=== PATIENT | female | born 1975 | race African-American/Black ===

== ENCOUNTER 2016-05-15 22:58 | Emergency (ER) | payer OTHER ==
[~2016-05-15 22:58] MED LIST: ABIL1TAB7 PO; COLA100C PO; EFFE150C PO; EFFEXOR PO; FLEXARIL PO; NAPROXYN PO; NEURONTIN PO; OXYC-299 PO; PERCOCET PO; TRAMADOL PO
[2016-05-15] MEDS ORDERED: VENLAFAXINE **XR** 75MG CAPSULE As Ordered ONE (23:57)
[2016-05-16 00:24] LABS: CONTROL LINE UCG INT CTR LINE PRESENT
[2016-05-16 00:35] LABS: MEAN CORPUSCULAR HEMOGLOBIN 36.1 pg (27.0-33.0); MEAN CORPUSCULAR HGB CONC 33.4 g/dl (32.0-36.5); MEAN CORPUSCULAR VOLUME 99.9 fl (80.0-96.0); RED CELL DISTRIBUTION WIDTH 11.9 % (11.5-14.5); WHITE BLOOD COUNT 9.7 K/mm3 (4.0-10.0)
[2016-05-16 00:41] LABS: AMPHETAMINES LEVEL URINE NEGATIVE (NEGATIVE); BENZODIAZEPINES URINE NEGATIVE (NEGATIVE); COCAINE METABOLITE URINE NEGATIVE (NEGATIVE); METHADONE URINE NEGATIVE (NEGATIVE)
[2016-05-16 00:42] LABS: CONTROL LINE INT CTR LINE PRESENT; OPIATES URINE POSITIVE (NEGATIVE); TRICYCLIC ANTIDEPRESS URINE NEGATIVE (NEGATIVE)
[2016-05-16 01:03] LABS: ALKALINE PHOSPHATASE 83 U/L (45-117); ANION GAP 12 MEQ/L (8-16); BILIRUBIN,DIRECT < 0.1 MG/DL (0.0-0.2); BILIRUBIN,TOTAL 0.4 MG/DL (0.2-1.0); CALCIUM LEVEL 8.1 MG/DL (8.5-10.1); CARBON DIOXIDE LEVEL 21 MEQ/L (21-32); CHLORIDE LEVEL 105 MEQ/L (98-107); CREATININE FOR GFR 1.18 MG/DL (0.55-1.02); GLOMERULAR FILTRATION RATE > 60.0 (>60); GLUCOSE, FASTING 121 MG/DL (70-105); POTASSIUM SERUM 4.6 MEQ/L (3.5-5.1); SODIUM LEVEL 138 MEQ/L (136-145)
[2016-05-16 01:32] LABS: ALBUMIN/GLOBULIN RATIO 0.95 (1.00-1.93); ALT/SGPT 29 U/L (12-78); AST/SGOT 37 U/L (15-37); BLOOD UREA NITROGEN 19 MG/DL (7-18); TOTAL PROTEIN 8.2 GM/DL (6.4-8.2)
--- NOTE | 2016-05-16 02:58 | EDDOCDS ---
Nurse's Notes [facility] Name: Adriane Contreras Age: 40 yrs Sex: Female : 1975 Arrival Date: 05/15/2016 Time: 22:58 Bed I7 / 29 Private MD: NO PRIMARY PHYSICIAN, . Diagnosis: Major depressive disorder, recurrent Presentation: 05/15 23:09 Presenting complaint: Patient states: Has been off her "Mental Health Meds for two lf1 days". Pt reports she normally takes 450 mg Effexor daily, states since she has been off she has had increased feelings of anxiety, depression, anger and racing thoughts. Pt denies SI and HI. Mental Health Triage Level: Level 1- Pt displays no suicidal or homicidal ideations and does not appear to be a danger to self or others. Adult Sepsis Screening: The patient does not have new or worsening altered mentation. Patient's respiratory rate is less than 22. Systolic blood pressure is greater than 100. Patient has a qSOFA score of 0- Negative Sepsis Screen. Suicide/Homicide risk assessment- the patient denies having any suicidal and/or homicidal ideations and does not present with any other emotional, behavioral or mental health complaints. 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 Transition of care: patient was not received from another setting of care. 23:09 Acuity: NAV Level 4 lf1 23:09 Method Of Arrival: Walkin/Carried/Asstd lf1 23:13 Presenting complaint: Patient states: States her PCP prescribed the Effexor but she was lf1 suppose to followup with a provider for regular psychiatric care and hasn't been able to get in, is currently waiting to hear from someone at [facility]. 23:16 Red Flag criteria, Pt taken to Minor treatment to complete triage, denies SI/HI. lf1 Triage Assessment: 23:13 General: Appears unkempt, Behavior is. Pain: Location: back Pain currently is 6 out of lf1 10 on a pain scale. Pain began chronic. HIV screening NA for this visit Offered previously. Neurological: Level of Consciousness is awake, alert, Oriented to person, place, time. Respiratory: Respiratory effort is even, unlabored. GI: Denies nausea, vomiting. : Denies burning with urination, inability to void. Derm: Skin is normal. Injury Description: No known injury. 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 Effexor XR 450 mg Oral once daily (Last dose: 05/13/2016) - PMHx: Chronic Back pain; Depression; - PSHx: back surgery; Lumbar Surgery; - Social history: Smoking status: Smoking status: Patient uses tobacco products, current every day smoker. No barriers to communication noted, The patient speaks fluent [place], Speaks appropriately for age, Preferred Language: Ukrainian. - Family history: Not pertinent. - : The pt / caregiver states he / she is not on anticoagulants. Home medication list is obtained from the patient. - Exposure Risk Screening:: None identified. Screenin/04 02:52 Screening information is obtained from the patient. Fall risk: No risks identified. ead Assistance ADL's: requires no assistance with activities of daily living. Abuse/DV Screen: The patient / caregiver reports he/she is: not in a situation that causes fear, pain or injury. Nutritional screening: No deficits noted. Advance Directives: Currently, there is no health care proxy. There is no Power of Precision Agriculture Technician. home support is adequate. Assessment: 00:01 General: Appears in no apparent distress, Behavior is anxious. Neurological: Level of dsf Consciousness is awake, alert. Cardiovascular: Capillary refill < 3 seconds. Respiratory: Airway is patent Respiratory effort is even, unlabored, Respiratory pattern is regular, symmetrical. Derm: Skin is pink, warm & dry. 01:04 General: Appears in no apparent distress, to be sleeping. Respiratory: Airway is patent ead Respiratory effort is even, unlabored. Derm: Skin is pink, warm & dry. 02:00 General: Appears in no apparent distress, to be sleeping. awaiting PSA to evaluate pt. ead . Respiratory: Airway is patent Respiratory effort is even, unlabored. 02:53 General: Appears in no apparent distress, comfortable, Behavior is cooperative. ead Neurological: Level of Consciousness is awake, alert, Oriented to person, place, time. Respiratory: Airway is patent Respiratory effort is even, unlabored. Derm: No deficits noted. Social Work Consult: 02:44 Social Work Note: Met with Pt at bedside per request SHASHI Marquez. Pt was A&Ox3, calm and rb cooperative, denied SI/HI, denied AH/VH, and pleasant to talk with. Pt stated was living with her GF. They brokeup Saturday and was staying with a friend. Pt reported has no place to go, cannot stay with Friend. Pt reported has a Brother living in town but does not want to impose on him and his family. Pt stated "waiting on TLS to kick in". Encouraged Pt to contact her Brother for a temporary place to stay. Referred Pt to [facility] in the morning. Additional referrals given. No further interventions needed at this time. Vital Signs: 05/15 22:59 BP 145 / 95; Pulse 137; Resp 18 S; Temp 97.3(O); Pulse Ox 98% on R/A; Weight 81.65 kg gr2 (R); Height 5 ft. 7 in. (170.18 cm) (R); Pain 4/10; 23:13 Pulse 124; Resp 16; Pain 6/10; lf1 05/16 02:53 BP 162 / 80 (man/); Pulse 102; Resp 16; Temp 98.1; Pulse Ox 97% on R/A; ead 05/15 22:59 Body Mass Index 28.19 (81.65 kg, 170.18 cm) gr2 Vitals: 01 22:59 Log In Time: May 15, 2016 at 22:59. gr2 23:01 RN notified that patient meets Red Flag criteria. gr2 ED Course: 22:59 Patient visited by Abby Lopez. gr2 22:59 NO PRIMARY PHYSICIAN, . is Private Physician. gr2 22:59 Patient moved to Waiting gr2 23:01 Patient visited by Abby Lopez. gr2 23:01 Patient moved to Pre RCE gr2 23:09 Patient moved to Triage 1 lf1 23:12 Triage Initiated lf1 23:23 Jorge Marquez PA is PHCP. mo1 23:23 Jeet Johnson MD is Attending Physician. mo1 23:42 Patient visited by Jorge Marquez PA. mo1 23:47 Patient moved to I lf1 05/16 00:01 Patient visited by Norma Hilton RN. dsf 00:08 Acetaminophen Level Sent. dsf 00:08 Basic Metabolic Profile Sent. dsf 00:08 Complete Blood Count Sent. dsf 00:08 Drug Eval Toxicology ED Only Sent. dsf 00:08 Ethyl Alcohol (ethanol) Sent. dsf 00:08 Liver Profile Sent. dsf 00:08 Salicylate Level Sent. dsf 00:08 Thyroid Stimulating Hormone Sent. dsf 00:08 Urine Test-In Lab Sent. dsf 01:02 Patient visited by Allie YeeRN. ead 02:31 Patient visited by Allie Yee RN. ead 02:43 [facility] is Referral Physician. mo1 02:43 [facility] is Referral Physician. mo1 02:43 PSA Outpatient Referrals was scanned into [employer] and attached to record. rb 02:57 The patient / caregiver is instructed regarding the plan of care and ED course. ead 02:57 No IV's were initiated during this patient's visit. No procedures done that require ead assistance. Administered Medications: 05/15 23:58 Drug: Venlafaxine 450 mg [venlafaxine ER 75 mg capsule,extended release 24 hr (6 caps)] dsf Route: PO; Order Results: Lab Order: Acetaminophen Level; SPEC'M 05/16/16 00:07 Test: ACETAMINOPHEN LEVEL; Value: < 2.0; Range: 10.0-30.0; Abnormal: Below low normal; Units: UG/ML; Status: F Lab Order: Basic Metabolic Profile; SPEC'M 05/16/16 00:07 Test: GLUCOSE, FASTING; Value: 121; Range: 70-105; Abnormal: Above high normal; Units: MG/DL; Status: F Test: BLOOD UREA NITROGEN; Value: 19; Range: 7-18; Abnormal: Above high normal; Units: MG/DL; Status: F Test: CREATININE FOR GFR; Value: 1.18; Range: 0.55-1.02; Abnormal: Above high normal; Units: MG/DL; Status: F Test: GLOMERULAR FILTRATION RATE; Value: > 60.0; Range: >60; Status: F Test: SODIUM LEVEL; Value: 138; Range: 136-145; Units: MEQ/L; Status: F Test: POTASSIUM SERUM; Value: 4.6; Range: 3.5-5.1; Units: MEQ/L; Status: F Test: CHLORIDE LEVEL; Value: 105; Range: 98-107; Units: MEQ/L; Status: F Test: CARBON DIOXIDE LEVEL; Value: 21; Range: 21-32; Units: MEQ/L; Status: F Test: ANION GAP; Value: 12; Range: 8-16; Units: MEQ/L; Status: F Test: CALCIUM LEVEL; Value: 8.1; Range: 8.5-10.1; Abnormal: Below low normal; Units: MG/DL; Status: F Test Note: ; Units are mL/min/1.73 m2 Chronic Kidney Disease Staging per NKF: Stage I & II GFR >=60 Normal to Mildly Decreased Stage III GFR 30-59 Moderately Decreased Stage IV GFR 15-29 Severely Decreased Stage V GFR <15 Very Little GFR Left ESRD GFR <15 on BANK OFFICER Lab Order: Complete Blood Count; SPEC'M 05/16/16 00:07 Test: WHITE BLOOD COUNT; Value: 9.7; Range: 4.0-10.0; Units: K/mm3; Status: F Test: RED BLOOD COUNT; Value: 3.95; Range: 4.00-5.40; Abnormal: Below low normal; Units: M/mm3; Status: F Test: HEMOGLOBIN; Value: 13.2; Range: 12.0-16.0; Units: g/dl; Status: F Test: HEMATOCRIT; Value: 39.5; Range: 36.0-47.0; Units: %; Status: F Test: MEAN CORPUSCULAR VOLUME; Value: 99.9; Range: 80.0-96.0; Abnormal: Above high normal; Units: fl; Status: F Test: MEAN CORPUSCULAR HEMOGLOBIN; Value: 36.1; Range: 27.0-33.0; Abnormal: Above high normal; Units: pg; Status: F Test: MEAN CORPUSCULAR HGB CONC; Value: 33.4; Range: 32.0-36.5; Units: g/dl; Status: F Test: RED CELL DISTRIBUTION WIDTH; Value: 11.9; Range: 11.5-14.5; Units: %; Status: F Test: PLATELET COUNT, AUTOMATED; Value: 303; Range: 150-450; Units: k/mm3; Status: F Test Note: ; Testing was performed on a lipemic specimen. Suggest recollection of a FASTING specimen for more accurate test results. Lab Order: Drug Eval Toxicology ED Only; SPEC'M 05/16/16 00:07 Test: AMPHETAMINES LEVEL URINE; Value: NEGATIVE; Range: NEGATIVE; Status: F Test: BARBITURATES URINE; Value: NEGATIVE; Range: NEGATIVE; Status: F Test: BENZODIAZEPINES URINE; Value: NEGATIVE; Range: NEGATIVE; Status: F Test: CANNABINOIDS URINE; Value: NEGATIVE; Range: NEGATIVE; Status: F Test: COCAINE METABOLITE URINE; Value: NEGATIVE; Range: NEGATIVE; Status: F Test: METHADONE URINE; Value: NEGATIVE; Range: NEGATIVE; Status: F Test: OPIATES URINE; Value: POSITIVE; Range: NEGATIVE; Abnormal: Above high normal; Status: F Test: TRICYCLIC ANTIDEPRESS URINE; Value: NEGATIVE; Range: NEGATIVE; Status: F Test Note: ; ALL PRESUMPTIVE POSITIVE FINDINGS ARE UNCONFIRMED NORMAL VALUES THRESHOLD IN NG/ML AMPHETAMINES 1000 METHAMPHETAMINES 1000 BARBITURATES 300 BENZODIAZEPINES 300 CANNABINOIDS (THC) 50 COCAINE METABOLITE 300 METHADONE 300 OPIATES 300 PHENCYCLIDINE 25 TRICYCLIC ANTIDEPRESSANTS 1000 RESULTS ARE FOR MEDICAL PURPOSES ONLY. ALL URINE SPECIMENS WILL BE SAVED FOR 3 DAYS. IF CONFIRMATION OF A PRESUMPTIVE POSTIVE SCREEN RESULT IS DESIRED, CALL CHEMISTRY ([phone]) AND REQUEST URINE TO BE SENT TO REFERENCE LAB. FOR A LIST OF CLOSELY RELATED COMPOUNDS PLEASE CALL THE LAB. Lab Order: Ethyl Alcohol (ethanol); SPEC'M 05/16/16 00:07 Test: ETHYL ALCOHOL (ETHANOL); Value: 0.005; Range: 0.000-0.010; Units: %; Status: F Lab Order: Liver Profile; SPEC'M 05/16/16 00:07 Test: AST/SGOT; Value: 37; Range: 15-37; Units: U/L; Status: F Test: ALT/SGPT; Value: 29; Range: 12-78; Units: U/L; Status: F Test: ALKALINE PHOSPHATASE; Value: 83; Range: 45-117; Units: U/L; Status: F Test: BILIRUBIN,TOTAL; Value: 0.4; Range: 0.2-1.0; Units: MG/DL; Status: F Test: BILIRUBIN,DIRECT; Value: < 0.1; Range: 0.0-0.2; Units: MG/DL; Status: F Test: TOTAL PROTEIN; Value: 8.2; Range: 6.4-8.2; Units: GM/DL; Status: F Test: ALBUMIN; Value: 4.0; Range: 3.2-5.2; Units: GM/DL; Status: F Test: ALBUMIN/GLOBULIN RATIO; Value: 0.95; Range: 1.00-1.93; Abnormal: Below low normal; Status: F Lab Order: Salicylate Level; SPEC'M 05/16/16 00:07 Test: SALICYLATE LEVEL; Value: 1.7; Range: 5.0-30.0; Abnormal: Below low normal; Units: MG/DL; Status: F Lab Order: Thyroid Stimulating Hormone; SPEC'M 05/16/16 00:07 Test: THYROID STIMULATING HORMONE; Value: 0.483; Range: 0.358-3.740; Units: uIU/ML; Status: F Lab Order: Urine Test-In Lab; SPEC'M 05/16/16 00:07 Test: URINE PREG TEST; Value: NEGATIVE; Range: NEGATIVE; Status: F Outcome: 05/16 02:44 Discharge ordered by Provider. mo1 02:55 Discharge Assessment: Patient awake and alert. obeys commands, Oriented to person, ead place and time. patient administered narcotics - no. The following High Risk Discharge criteria are identified: None. Discharged to home ambulatory. Condition: improved. Discharge instructions given to patient, Instructed on discharge instructions, follow up and referral plans. medication usage, Demonstrated understanding of instructions, medications, Pt was receptive of discharge instructions/ teaching. Prescriptions given X 1. No special radiology studies were completed. Property sent home with patient. 02:57 Patient left the ED. ead Signatures: Sussy Ellis PSA PSA Gemini CoreaRN RN lf1 Norma Hilton,RN RN dsf Abby Lopez gr2 Jorge Marquez PA PA mo1 Allie Yee RN RN ead MTDD
--- NOTE | 2016-05-16 02:58 | EDDOCDS ---
Physician Documentation [facility] Name: Adriane Contreras Age: 40 yrs Sex: Female : 1975 Arrival Date: 05/15/2016 Time: 22:58 Bed I7 / 29 Private MD: NO PRIMARY PHYSICIAN, . Disposition: 05/16/16 02:44 Discharged to Home/Self Care. Impression: Major depressive disorder, recurrent. - Condition is Stable. - Discharge Instructions: Depression, Adult. - Prescriptions for Effexor XR 150 mg Oral capsule,extended release 24hr - take 3 capsule by ORAL route once daily; 42 capsule. - Medication Reconciliation, Local Pharmacy Hours form. - Follow up: [facility]; When: Call to arrange an appointment; Reason: Recheck today's complaints, Continuance of care. Follow up: [facility]; When: Call to arrange an appointment; Reason: Recheck today's complaints, Continuance of care. - Problem is an acute exacerbation. - Symptoms are unchanged. Historical: - Allergies: PENICILLINS (Rash); - Home Meds: 1. Effexor XR 450 mg Oral once daily (Last dose: 05/13/2016) - PMHx: Chronic Back pain; Depression; - PSHx: back surgery; Lumbar Surgery; - Social history: Smoking status: Smoking status: Patient uses tobacco products, current every day smoker. No barriers to communication noted, The patient speaks fluent Bangladeshi, Speaks appropriately for age, Preferred Language: Bangladeshi. - Family history: Not pertinent. - : The pt / caregiver states he / she is not on anticoagulants. Home medication list is obtained from the patient. - Exposure Risk Screening:: None identified. DOUPER: 05/15 23:13 0, Living 0, LMP 04/29/2016 lf1 Vital Signs: 22:59 BP 145 / 95; Pulse 137; Resp 18 S; Temp 97.3(O); Pulse Ox 98% on R/A; Weight 81.65 kg / gr2 180.01 lbs (R); Height 5 ft. 7 in. (170.18 cm) (R); Pain 4/10; 23:13 Pulse 124; Resp 16; Pain 6/10; lf1 05/16 02:53 BP 162 / 80 (man/); Pulse 102; Resp 16; Temp 98.1; Pulse Ox 97% on R/A; ead 05/15 22:59 Body Mass Index 28.19 (81.65 kg, 170.18 cm) gr2 MDM: 05/15 23:43 Venlafaxine Extended Release 24 hour Capsule 450 mg PO once ordered. mo1 23:51 Consult PFS/PSA/[employer] Teacher: Psychiatric Concerns ordered. mo1 23:51 Confirm accurate psychiatric medication list and times of last dosage ordered. mo1 23:51 Detain Pt Until Medically/PFS Cleared ordered. mo1 23:52 Acetaminophen Level Ordered. EDMS 23:52 Basic Metabolic Profile Ordered. EDMS 23:52 Complete Blood Count Ordered. EDMS 23:52 Drug Eval Toxicology ED Only Ordered. EDMS 23:52 Ethyl Alcohol (ethanol) Ordered. EDMS 23:52 Liver Profile Ordered. EDMS 23:52 Salicylate Level Ordered. EDMS 23:52 Thyroid Stimulating Hormone Ordered. EDMS 23:52 Urine Test-In Lab Ordered. EDMS 04 00:43 Complete Blood Count Reviewed. mo1 00:43 Urine Test-In Lab Reviewed. mo1 01:17 Drug Eval Toxicology ED Only Reviewed. mo1 01:17 Urine Test-In Lab Reviewed. mo1 01:47 Acetaminophen Level Reviewed. mo1 01:47 Basic Metabolic Profile Reviewed. mo1 01:47 Liver Profile Reviewed. mo1 01:48 Salicylate Level Reviewed. mo1 01:48 Ethyl Alcohol (ethanol) Reviewed. mo1 01:48 Thyroid Stimulating Hormone Reviewed. mo1 01:49 Consult PFS/PSA/Socail Worker: Cleared medically for eval ordered. mo1 02:43 PSA Outpatient Referrals was scanned into [employer] and attached to record. rb Administered Medications: 05/15 23:58 Drug: Venlafaxine 450 mg [venlafaxine ER 75 mg capsule,extended release 24 hr (6 caps)] dsf Route: PO; Signatures: Dispatcher [employer] EDMS Sussy Ellis, PSA PSA rb Gemini Hdez,RN RN lf1 Jorge Marquez PA PA mo1 Allie Yee RN RN ead Fuller, Desiree RN dsf MTDD
--- NOTE | 2016-05-18 03:58 | EDDOCDS ---
Physician Documentation [facility] Name: Adriane Contreras Age: 40 yrs Sex: Female : 1975 Arrival Date: 05/15/2016 Time: 22:58 Bed I7 / 29 Private MD: NO PRIMARY PHYSICIAN, . Disposition: 05/16/16 02:44 Discharged to Home/Self Care. Impression: Major depressive disorder, recurrent. - Condition is Stable. - Discharge Instructions: Depression, Adult. - Prescriptions for Effexor XR 150 mg Oral capsule,extended release 24hr - take 3 capsule by ORAL route once daily; 42 capsule. - Medication Reconciliation, Local Pharmacy Hours form. - Follow up: [facility]; When: Call to arrange an appointment; Reason: Recheck today's complaints, Continuance of care. Follow up: [facility]; When: Call to arrange an appointment; Reason: Recheck today's complaints, Continuance of care. - Problem is an acute exacerbation. - Symptoms are unchanged. Historical: - Allergies: PENICILLINS (Rash); - Home Meds: 1. Effexor XR 450 mg Oral once daily (Last dose: 05/13/2016) - PMHx: Chronic Back pain; Depression; - PSHx: back surgery; Lumbar Surgery; - Social history: Smoking status: Smoking status: Patient uses tobacco products, current every day smoker. No barriers to communication noted, The patient speaks fluent Citizen [place], Speaks appropriately for age, Preferred Language: Citizen [place]. - Family history: Not pertinent. - : The pt / caregiver states he / she is not on anticoagulants. Home medication list is obtained from the patient. - Exposure Risk Screening:: None identified. 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 7 in. (170.18 cm) (R); Pain 4/10; 23:13 Pulse 124; Resp 16; Pain 6/10; lf1 05/16 02:53 BP 162 / 80 (man/); Pulse 102; Resp 16; Temp 98.1; Pulse Ox 97% on R/A; ead 05/15 22:59 Body Mass Index 28.19 (81.65 kg, 170.18 cm) gr2 MDM: 05/15 23:43 Venlafaxine Extended Release 24 hour Capsule 450 mg PO once ordered. mo1 23:51 Consult PFS/PSA/News Analyst: Psychiatric Concerns ordered. mo1 23:51 Confirm accurate psychiatric medication list and times of last dosage ordered. mo1 23:51 Detain Pt Until Medically/PFS Cleared ordered. mo1 23:52 Acetaminophen Level Ordered. EDMS 23:52 Basic Metabolic Profile Ordered. EDMS 23:52 Complete Blood Count Ordered. EDMS 23:52 Drug Eval Toxicology ED Only Ordered. EDMS 23:52 Ethyl Alcohol (ethanol) Ordered. EDMS 23:52 Liver Profile Ordered. EDMS 23:52 Salicylate Level Ordered. EDMS 23:52 Thyroid Stimulating Hormone Ordered. EDMS 23:52 Urine Test-In Lab Ordered. EDMS 04 00:43 Complete Blood Count Reviewed. mo1 00:43 Urine Test-In Lab Reviewed. mo1 01:17 Drug Eval Toxicology ED Only Reviewed. mo1 01:17 Urine Test-In Lab Reviewed. mo1 01:47 Acetaminophen Level Reviewed. mo1 01:47 Basic Metabolic Profile Reviewed. mo1 01:47 Liver Profile Reviewed. mo1 01:48 Salicylate Level Reviewed. mo1 01:48 Ethyl Alcohol (ethanol) Reviewed. mo1 01:48 Thyroid Stimulating Hormone Reviewed. mo1 01:49 Consult PFS/PSA/Socail Worker: Cleared medically for eval ordered. mo1 02:43 PSA Outpatient Referrals was scanned into [employer] and attached to record. [place] 12:44 T-Sheet-- Draft Copy was scanned into [employer] and attached to record. gb Administered Medications: 05/15 23:58 Drug: Venlafaxine 450 mg [venlafaxine ER 75 mg capsule,extended release 24 hr (6 caps)] dsf Route: PO; Signatures: Dispatcher [employer] EDMS Sussy Ellis, PSA PSA rb Jazmin Hudson, Reg Reg gb Gemini HdezRN RN lf1 Jorge Marquez PA PA mo1 Allie YeeRN RN Norma Dailey RN dsf The chart was reviewed and I authenticate all verbal orders and agree with the evaluation and treatment provided.Attachments: 12:44 T-Sheet-- Draft Copy gb Chart Complete MTDD
--- NOTE | 2016-05-18 03:58 | EDDOCDS ---
Nurse's Notes [facility] Name: Adriane Contreras Age: 40 yrs Sex: Female : 1975 Arrival Date: 05/15/2016 Time: 22:58 Bed I7 / 29 Private MD: NO PRIMARY PHYSICIAN, . Diagnosis: Major depressive disorder, recurrent Presentation: 05/15 23:09 Presenting complaint: Patient states: Has been off her "Mental Health Meds for two lf1 days". Pt reports she normally takes 450 mg Effexor daily, states since she has been off she has had increased feelings of anxiety, depression, anger and racing thoughts. Pt denies SI and HI. Mental Health Triage Level: Level 1- Pt displays no suicidal or homicidal ideations and does not appear to be a danger to self or others. Adult Sepsis Screening: The patient does not have new or worsening altered mentation. Patient's respiratory rate is less than 22. Systolic blood pressure is greater than 100. Patient has a qSOFA score of 0- Negative Sepsis Screen. Suicide/Homicide risk assessment- the patient denies having any suicidal and/or homicidal ideations and does not present with any other emotional, behavioral or mental health complaints. Status: Patient is not a claims service adjustor or dependent. Transition of care: patient was not received from another setting of care. 23:09 Acuity: NAV Level 4 lf1 23:09 Method Of Arrival: Walkin/Carried/Asstd lf1 23:13 Presenting complaint: Patient states: States her PCP prescribed the Effexor but she was lf1 suppose to followup with a provider for regular psychiatric care and hasn't been able to get in, is currently waiting to hear from someone at [facility]. 23:16 Red Flag criteria, Pt taken to Minor treatment to complete triage, denies SI/HI. lf1 Triage Assessment: 23:13 General: Appears unkempt, Behavior is. Pain: Location: back Pain currently is 6 out of lf1 10 on a pain scale. Pain began chronic. HIV screening NA for this visit Offered previously. Neurological: Level of Consciousness is awake, alert, Oriented to person, place, time. Respiratory: Respiratory effort is even, unlabored. GI: Denies nausea, vomiting. : Denies burning with urination, inability to void. Derm: Skin is normal. Injury Description: No known injury. 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 Effexor XR 450 mg Oral once daily (Last dose: 05/13/2016) - PMHx: Chronic Back pain; Depression; - PSHx: back surgery; Lumbar Surgery; - Social history: Smoking status: Smoking status: Patient uses tobacco products, current every day smoker. No barriers to communication noted, The patient speaks fluent Lithuanian, Speaks appropriately for age, Preferred Language: Lithuanian. - Family history: Not pertinent. - : The pt / caregiver states he / she is not on anticoagulants. Home medication list is obtained from the patient. - Exposure Risk Screening:: None identified. Screenin/04 02:52 Screening information is obtained from the patient. Fall risk: No risks identified. ead Assistance ADL's: requires no assistance with activities of daily living. Abuse/DV Screen: The patient / caregiver reports he/she is: not in a situation that causes fear, pain or injury. Nutritional screening: No deficits noted. Advance Directives: Currently, there is no health care proxy. There is no Power of Log Sawyer. home support is adequate. Assessment: 00:01 General: Appears in no apparent distress, Behavior is anxious. Neurological: Level of dsf Consciousness is awake, alert. Cardiovascular: Capillary refill < 3 seconds. Respiratory: Airway is patent Respiratory effort is even, unlabored, Respiratory pattern is regular, symmetrical. Derm: Skin is pink, warm & dry. 01:04 General: Appears in no apparent distress, to be sleeping. Respiratory: Airway is patent ead Respiratory effort is even, unlabored. Derm: Skin is pink, warm & dry. 02:00 General: Appears in no apparent distress, to be sleeping. awaiting PSA to evaluate pt. ead . Respiratory: Airway is patent Respiratory effort is even, unlabored. 02:53 General: Appears in no apparent distress, comfortable, Behavior is cooperative. ead Neurological: Level of Consciousness is awake, alert, Oriented to person, place, time. Respiratory: Airway is patent Respiratory effort is even, unlabored. Derm: No deficits noted. Social Work Consult: 02:44 Social Work Note: Met with Pt at bedside per request SHASHI Marquez. Pt was A&Ox3, calm and rb cooperative, denied SI/HI, denied AH/VH, and pleasant to talk with. Pt stated was living with her GF. They brokeup Saturday and was staying with a friend. Pt reported has no place to go, cannot stay with Friend. Pt reported has a Brother living in town but does not want to impose on him and his family. Pt stated "waiting on TLS to kick in". Encouraged Pt to contact her Brother for a temporary place to stay. Referred Pt to [facility] in the morning. Additional referrals given. No further interventions needed at this time. Vital Signs: 05/15 22:59 BP 145 / 95; Pulse 137; Resp 18 S; Temp 97.3(O); Pulse Ox 98% on R/A; Weight 81.65 kg gr2 (R); Height 5 ft. 7 in. (170.18 cm) (R); Pain 4/10; 23:13 Pulse 124; Resp 16; Pain 6/10; lf1 05/16 02:53 BP 162 / 80 (man/); Pulse 102; Resp 16; Temp 98.1; Pulse Ox 97% on R/A; ead 05/15 22:59 Body Mass Index 28.19 (81.65 kg, 170.18 cm) gr2 Vitals: 01 22:59 Log In Time: May 15, 2016 at 22:59. gr2 23:01 RN notified that patient meets Red Flag criteria. gr2 ED Course: 22:59 Patient visited by Abby Lopez. gr2 22:59 NO PRIMARY PHYSICIAN, . is Private Physician. gr2 22:59 Patient moved to Waiting gr2 23:01 Patient visited by Abby Lopez. gr2 23:01 Patient moved to Pre RCE gr2 23:09 Patient moved to Triage 1 lf1 23:12 Triage Initiated lf1 23:23 Jorge Marquez PA is PHCP. mo1 23:23 Jeet Johnson MD is Attending Physician. mo1 23:42 Patient visited by Jorge Marquez PA. mo1 23:47 Patient moved to I lf1 05/16 00:01 Patient visited by Norma Hilton RN. dsf 00:08 Acetaminophen Level Sent. dsf 00:08 Basic Metabolic Profile Sent. dsf 00:08 Complete Blood Count Sent. dsf 00:08 Drug Eval Toxicology ED Only Sent. dsf 00:08 Ethyl Alcohol (ethanol) Sent. dsf 00:08 Liver Profile Sent. dsf 00:08 Salicylate Level Sent. dsf 00:08 Thyroid Stimulating Hormone Sent. dsf 00:08 Urine Test-In Lab Sent. dsf 01:02 Patient visited by Allie YeeRN. ead 02:31 Patient visited by Allie Yee RN. ead 02:43 [facility] is Referral Physician. mo1 02:43 [facility] is Referral Physician. mo1 02:43 PSA Outpatient Referrals was scanned into [employer] and attached to record. rb 02:57 The patient / caregiver is instructed regarding the plan of care and ED course. ead 02:57 No IV's were initiated during this patient's visit. No procedures done that require ead assistance. 12:44 T-Sheet-- Draft Copy was scanned into [employer] and attached to record. gb Administered Medications: 05/15 23:58 Drug: Venlafaxine 450 mg [venlafaxine ER 75 mg capsule,extended release 24 hr (6 caps)] dsf Route: PO; Order Results: Lab Order: Acetaminophen Level; SPEC'M 05/16/16 00:07 Test: ACETAMINOPHEN LEVEL; Value: < 2.0; Range: 10.0-30.0; Abnormal: Below low normal; Units: UG/ML; Status: F Lab Order: Basic Metabolic Profile; SPEC'M 05/16/16 00:07 Test: GLUCOSE, FASTING; Value: 121; Range: 70-105; Abnormal: Above high normal; Units: MG/DL; Status: F Test: BLOOD UREA NITROGEN; Value: 19; Range: 7-18; Abnormal: Above high normal; Units: MG/DL; Status: F Test: CREATININE FOR GFR; Value: 1.18; Range: 0.55-1.02; Abnormal: Above high normal; Units: MG/DL; Status: F Test: GLOMERULAR FILTRATION RATE; Value: > 60.0; Range: >60; Status: F Test: SODIUM LEVEL; Value: 138; Range: 136-145; Units: MEQ/L; Status: F Test: POTASSIUM SERUM; Value: 4.6; Range: 3.5-5.1; Units: MEQ/L; Status: F Test: CHLORIDE LEVEL; Value: 105; Range: 98-107; Units: MEQ/L; Status: F Test: CARBON DIOXIDE LEVEL; Value: 21; Range: 21-32; Units: MEQ/L; Status: F Test: ANION GAP; Value: 12; Range: 8-16; Units: MEQ/L; Status: F Test: CALCIUM LEVEL; Value: 8.1; Range: 8.5-10.1; Abnormal: Below low normal; Units: MG/DL; Status: F Test Note: ; Units are mL/min/1.73 m2 Chronic Kidney Disease Staging per NKF: Stage I & II GFR >=60 Normal to Mildly Decreased Stage III GFR 30-59 Moderately Decreased Stage IV GFR 15-29 Severely Decreased Stage V GFR <15 Very Little GFR Left ESRD GFR <15 on AUTOMOBILE 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 Lab Order: Complete Blood Count; SPEC'M 05/16/16 00:07 Test: WHITE BLOOD COUNT; Value: 9.7; Range: 4.0-10.0; Units: K/mm3; Status: F Test: RED BLOOD COUNT; Value: 3.95; Range: 4.00-5.40; Abnormal: Below low normal; Units: M/mm3; Status: F Test: HEMOGLOBIN; Value: 13.2; Range: 12.0-16.0; Units: g/dl; Status: F Test: HEMATOCRIT; Value: 39.5; Range: 36.0-47.0; Units: %; Status: F Test: MEAN CORPUSCULAR VOLUME; Value: 99.9; Range: 80.0-96.0; Abnormal: Above high normal; Units: fl; Status: F Test: MEAN CORPUSCULAR HEMOGLOBIN; Value: 36.1; Range: 27.0-33.0; Abnormal: Above high normal; Units: pg; Status: F Test: MEAN CORPUSCULAR HGB CONC; Value: 33.4; Range: 32.0-36.5; Units: g/dl; Status: F Test: RED CELL DISTRIBUTION WIDTH; Value: 11.9; Range: 11.5-14.5; Units: %; Status: F Test: PLATELET COUNT, AUTOMATED; Value: 303; Range: 150-450; Units: k/mm3; Status: F Test Note: ; Testing was performed on a lipemic specimen. Suggest recollection of a FASTING specimen for more accurate test results. Lab Order: Drug Eval Toxicology ED Only; SPEC'M 05/16/16 00:07 Test: AMPHETAMINES LEVEL URINE; Value: NEGATIVE; Range: NEGATIVE; Status: F Test: BARBITURATES URINE; Value: NEGATIVE; Range: NEGATIVE; Status: F Test: BENZODIAZEPINES URINE; Value: NEGATIVE; Range: NEGATIVE; Status: F Test: CANNABINOIDS URINE; Value: NEGATIVE; Range: NEGATIVE; Status: F Test: COCAINE METABOLITE URINE; Value: NEGATIVE; Range: NEGATIVE; Status: F Test: METHADONE URINE; Value: NEGATIVE; Range: NEGATIVE; Status: F Test: OPIATES URINE; Value: POSITIVE; Range: NEGATIVE; Abnormal: Above high normal; Status: F Test: TRICYCLIC ANTIDEPRESS URINE; Value: NEGATIVE; Range: NEGATIVE; Status: F Test Note: ; ALL PRESUMPTIVE POSITIVE FINDINGS ARE UNCONFIRMED NORMAL VALUES THRESHOLD IN NG/ML AMPHETAMINES 1000 METHAMPHETAMINES 1000 BARBITURATES 300 BENZODIAZEPINES 300 CANNABINOIDS (THC) 50 COCAINE METABOLITE 300 METHADONE 300 OPIATES 300 PHENCYCLIDINE 25 TRICYCLIC ANTIDEPRESSANTS 1000 RESULTS ARE FOR MEDICAL PURPOSES ONLY. ALL URINE SPECIMENS WILL BE SAVED FOR 3 DAYS. IF CONFIRMATION OF A PRESUMPTIVE POSTIVE SCREEN RESULT IS DESIRED, CALL CHEMISTRY ([phone]) AND REQUEST URINE TO BE SENT TO REFERENCE LAB. FOR A LIST OF CLOSELY RELATED COMPOUNDS PLEASE CALL THE LAB. Lab Order: Ethyl Alcohol (ethanol); SPEC'M 05/16/16 00:07 Test: ETHYL ALCOHOL (ETHANOL); Value: 0.005; Range: 0.000-0.010; Units: %; Status: F Lab Order: Liver Profile; SPEC'M 05/16/16 00:07 Test: AST/SGOT; Value: 37; Range: 15-37; Units: U/L; Status: F Test: ALT/SGPT; Value: 29; Range: 12-78; Units: U/L; Status: F Test: ALKALINE PHOSPHATASE; Value: 83; Range: 45-117; Units: U/L; Status: F Test: BILIRUBIN,TOTAL; Value: 0.4; Range: 0.2-1.0; Units: MG/DL; Status: F Test: BILIRUBIN,DIRECT; Value: < 0.1; Range: 0.0-0.2; Units: MG/DL; Status: F Test: TOTAL PROTEIN; Value: 8.2; Range: 6.4-8.2; Units: GM/DL; Status: F Test: ALBUMIN; Value: 4.0; Range: 3.2-5.2; Units: GM/DL; Status: F Test: ALBUMIN/GLOBULIN RATIO; Value: 0.95; Range: 1.00-1.93; Abnormal: Below low normal; Status: F Lab Order: Salicylate Level; SPEC'M 05/16/16 00:07 Test: SALICYLATE LEVEL; Value: 1.7; Range: 5.0-30.0; Abnormal: Below low normal; Units: MG/DL; Status: F Lab Order: Thyroid Stimulating Hormone; SPEC'M 05/16/16 00:07 Test: THYROID STIMULATING HORMONE; Value: 0.483; Range: 0.358-3.740; Units: uIU/ML; Status: F Lab Order: Urine Test-In Lab; SPEC'M 05/16/16 00:07 Test: URINE PREG TEST; Value: NEGATIVE; Range: NEGATIVE; Status: F Outcome: 05/16 02:44 Discharge ordered by Provider. mo1 02:55 Discharge Assessment: Patient awake and alert. obeys commands, Oriented to person, ead place and time. patient administered narcotics - no. The following High Risk Discharge criteria are identified: None. Discharged to home ambulatory. Condition: improved. Discharge instructions given to patient, Instructed on discharge instructions, follow up and referral plans. medication usage, Demonstrated understanding of instructions, medications, Pt was receptive of discharge instructions/ teaching. Prescriptions given X 1. No special radiology studies were completed. Property sent home with patient. 02:57 Patient left the ED. ead Signatures: Sussy [facility], PSA PSA rb Jazmin Hudson, Reg Reg gb Gemini HdezRN RN lf1 Norma Hilton,RN RN dsf Abby Lopez gr2 Jorge Marquez PA PA mo1 Allie Yee,CHRISTOPHER RN ead Chart Complete MTDD
--- NOTE | 2016-05-18 03:58 | EDDOCDS ---
Physician Documentation [facility] Name: Adriane Contreras Age: 40 yrs Sex: Female : 1975 Arrival Date: 05/15/2016 Time: 22:58 Bed I7 / 29 Private MD: NO PRIMARY PHYSICIAN, . Disposition: 05/16/16 02:44 Discharged to Home/Self Care. Impression: Major depressive disorder, recurrent. - Condition is Stable. - Discharge Instructions: Depression, Adult. - Prescriptions for Effexor XR 150 mg Oral capsule,extended release 24hr - take 3 capsule by ORAL route once daily; 42 capsule. - Medication Reconciliation, Local Pharmacy Hours form. - Follow up: [facility]; When: Call to arrange an appointment; Reason: Recheck today's complaints, Continuance of care. Follow up: [facility]; When: Call to arrange an appointment; Reason: Recheck today's complaints, Continuance of care. - Problem is an acute exacerbation. - Symptoms are unchanged. Historical: - Allergies: PENICILLINS (Rash); - Home Meds: 1. Effexor XR 450 mg Oral once daily (Last dose: 05/13/2016) - PMHx: Chronic Back pain; Depression; - PSHx: back surgery; Lumbar Surgery; - Social history: Smoking status: Smoking status: Patient uses tobacco products, current every day smoker. No barriers to communication noted, The patient speaks fluent Senegalese, Speaks appropriately for age, Preferred Language: Senegalese. - Family history: Not pertinent. - : The pt / caregiver states he / she is not on anticoagulants. Home medication list is obtained from the patient. - Exposure Risk Screening:: None identified. 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 7 in. (170.18 cm) (R); Pain 4/10; 23:13 Pulse 124; Resp 16; Pain 6/10; lf1 05/16 02:53 BP 162 / 80 (man/); Pulse 102; Resp 16; Temp 98.1; Pulse Ox 97% on R/A; ead 05/15 22:59 Body Mass Index 28.19 (81.65 kg, 170.18 cm) gr2 MDM: 05/15 23:43 Venlafaxine Extended Release 24 hour Capsule 450 mg PO once ordered. mo1 23:51 Consult PFS/PSA/Roof Mechanic: Psychiatric Concerns ordered. mo1 23:51 Confirm accurate psychiatric medication list and times of last dosage ordered. mo1 23:51 Detain Pt Until Medically/PFS Cleared ordered. mo1 23:52 Acetaminophen Level Ordered. EDMS 23:52 Basic Metabolic Profile Ordered. EDMS 23:52 Complete Blood Count Ordered. EDMS 23:52 Drug Eval Toxicology ED Only Ordered. EDMS 23:52 Ethyl Alcohol (ethanol) Ordered. EDMS 23:52 Liver Profile Ordered. EDMS 23:52 Salicylate Level Ordered. EDMS 23:52 Thyroid Stimulating Hormone Ordered. EDMS 23:52 Urine Test-In Lab Ordered. EDMS 04 00:43 Complete Blood Count Reviewed. mo1 00:43 Urine Test-In Lab Reviewed. mo1 01:17 Drug Eval Toxicology ED Only Reviewed. mo1 01:17 Urine Test-In Lab Reviewed. mo1 01:47 Acetaminophen Level Reviewed. mo1 01:47 Basic Metabolic Profile Reviewed. mo1 01:47 Liver Profile Reviewed. mo1 01:48 Salicylate Level Reviewed. mo1 01:48 Ethyl Alcohol (ethanol) Reviewed. mo1 01:48 Thyroid Stimulating Hormone Reviewed. mo1 01:49 Consult PFS/PSA/Socail Worker: Cleared medically for eval ordered. mo1 02:43 PSA Outpatient Referrals was scanned into [employer] and attached to record. [place] 12:44 T-Sheet-- Draft Copy was scanned into [employer] and attached to record. gb Administered Medications: 05/15 23:58 Drug: Venlafaxine 450 mg [venlafaxine ER 75 mg capsule,extended release 24 hr (6 caps)] dsf Route: PO; Signatures: Dispatcher [employer] EDMS Sussy Ellis, PSA PSA rb Jazmin Hudson, Reg Reg gb Gemini HdezRN RN lf1 Jorge Marquez PA PA mo1 Allie YeeRN RN Norma Dailey RN dsf The chart was reviewed and I authenticate all verbal orders and agree with the evaluation and treatment provided.Attachments: 12:44 T-Sheet-- Draft Copy gb Chart Complete MTDD
== END 2016-05-16 02:57 | disposition home or self-care (01) ==
LOC: M ED 22:58
DX: F33.1 Major depressive disorder, recurrent, moderate (principal); M54.9 Dorsalgia, unspecified; F17.210 Nicotine dependence, cigarettes, uncomplicated; Z79.899 Other long term (current) drug therapy; Z88.0 Allergy status to penicillin
CPT/HCPCS: 36415; 80048; 80076; 80306; 84443; 84703; 85027; 99283; G0480

== ENCOUNTER 2016-06-04 14:52 | Emergency (ER) | payer OTHER ==
[2016-06-04] MEDS ORDERED: NAPROXEN 250 MG TAB As Ordered ONE (16:28)
[2016-06-04] MEDS ORDERED: CYCLOBENZAPRINE 10 MG TAB As Ordered ONE (16:29)
--- NOTE | 2016-06-04 17:15 | EDDOCDS ---
Physician Documentation [facility] Name: Adriane Contreras Age: 40 yrs Sex: Female : 1975 Arrival Date: 06/04/2016 Time: 14:52 Bed TR8 Private MD: Yann Olsen Disposition: 06/04/16 16:23 Discharged to Home/Self Care. Impression: Low back pain - chronic. - Condition is Stable. - Discharge Instructions: Chronic Back Pain. - Prescriptions for Naprosyn 500 mg Oral Tablet - take 1 tablet by ORAL route 2 times per day take with food; 30 tablet. Prednisone 20 mg Oral Tablet - take 1 tablet by ORAL route once daily for 5 days; 5 tablet. Cyclobenzaprine 10 mg Oral Tablet - take 1 tablet by ORAL route 3 times per day As needed; 15 tablet. - Medication Reconciliation, Local Pharmacy [facility], [facility] Followup form. - Follow up: Emergency Department; When: As needed. Follow up: [facility]; When: Call to arrange an appointment; Reason: Wound/Symptom Recheck, Recheck today's complaints, Worsening of conditions, Continuance of care. - Problem is chronic. - Symptoms are unchanged. Historical: - Allergies: PENICILLINS (Rash); - Home Meds: 1. Effexor XR 450 mg Oral once daily (Last dose: 06/04/2016 10:00) 2. nabumetone 750 mg oral tab 1 tab 2 times per day (Last dose: 06/03/2016 10:00) - PMHx: Chronic Back pain; Depression; - PSHx: back surgery; Lumbar Surgery; - Social history: Smoking status: Patient uses tobacco products, heavy tobacco smoker. No barriers to communication noted, The patient speaks fluent Kiswahili, Speaks appropriately for age. - Family history: Not pertinent. - : The pt / caregiver states he / she is not on anticoagulants. Home medication list is obtained from the patient. - Exposure Risk Screening:: None identified. 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 7 in. (170.18 cm) (R); 14:53 Body Mass Index 28.50 (82.55 kg, 170.18 cm) dd6 MDM: 16:22 Cyclobenzaprine 10 mg PO once ordered. cc10 16:22 Naproxen 500 mg PO once; administer with food or milk ordered. cc10 16:56 Financial registration complete. gjb Administered Medications: 16:25 Drug: Cyclobenzaprine 10 mg [cyclobenzaprine 10 mg tablet (1 tabs)] Route: PO; ml6 16:25 Drug: Naproxen 500 mg [naproxen 250 mg tablet (2 tabs)] Route: PO; ml6 Signatures: Jamey Martinez RN RN ml6 Re Arias RN RN hs1 Tawanda Harrington PA-C PA-C cc10 Rubia Tyler VESTA
--- NOTE | 2016-06-04 17:15 | EDDOCDS ---
Nurse's Notes [facility] Name: Adriane Contreras Age: 40 yrs Sex: Female : 1975 Arrival Date: 06/04/2016 Time: 14:52 Bed TR8 Private MD: Yann Olsen Diagnosis: Low back pain-chronic Presentation: 06/04 15:08 Presenting complaint: Patient states: "my back again" patient reports falling at end of hs1 April and was seen here diagnosed with back pain and refer to primary care. Patient states has been following up and nothing is working and the medications she has been on have not been working. Patient at this time answers cell phone and speaks to friend on phone laughing. Acute neurological deficits are not present. Mechanism of Injury: No Mechanism of Injury. Adult Sepsis Screening: The patient does not have new or worsening altered mentation. Patient's respiratory rate is less than 22. Systolic blood pressure is greater than 100. Patient has a qSOFA score of 0- Negative Sepsis Screen. Suicide/Homicide risk assessment- the patient denies having any suicidal and/or homicidal ideations and does not present with any other emotional, behavioral or mental health complaints. 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 Transition of care: patient was not received from another setting of care. 15:08 Acuity: NAV Level 4 hs1 15:08 Method Of Arrival: Walkin/Carried/Asstd hs1 Triage Assessment: 15:11 General: Appears uncomfortable, Behavior is appropriate for age, cooperative. Pain: hs1 Location: back Pain currently is 8 out of 10 on a pain scale. HIV screening NA for this visit Offered previously. Musculoskeletal: No deficits noted. 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 Effexor XR 450 mg Oral once daily (Last dose: 06/04/2016 10:00) 2. nabumetone 750 mg oral tab 1 tab 2 times per day (Last dose: 06/03/2016 10:00) - PMHx: Chronic Back pain; Depression; - PSHx: back surgery; Lumbar Surgery; - Social history: Smoking status: Patient uses tobacco products, heavy tobacco smoker. No barriers to communication noted, The patient speaks fluent Luxembourgish, Speaks appropriately for age. - Family history: Not pertinent. - : The pt / caregiver states he / she is not on anticoagulants. Home medication list is obtained from the patient. - Exposure Risk Screening:: None identified. Screenin:25 Screening information is obtained from the patient. Fall risk: No risks identified. ml6 Assistance ADL's: requires no assistance with activities of daily living. Abuse/DV Screen: The patient / caregiver reports he/she is: not in a situation that causes fear, pain or injury. Nutritional screening: No deficits noted. Advance Directives: Currently, there is no health care proxy. home support is adequate. Assessment: 16:25 General: Appears in no apparent distress, Behavior is appropriate for age, cooperative. ml6 Pain: Location: back Pain currently is 6 out of 10 on a pain scale. Pain does not radiate. Quality of pain is described as aching, Pain began 2-3 days ago Is continuous Alleviated by nothing. Aggravated by increased activity. Cardiovascular: No deficits noted. Capillary refill < 3 seconds is sluggish in bilateral fingers toes Heart tones S1 S2 present Edema is absent. Pulses are all present. Respiratory: No deficits noted. Musculoskeletal: Circulation, motion, and sensation intact Capillary refill < 3 seconds is brisk in bilateral fingers toes Range of motion intact in all extremities. No deformity noted Swelling absent Signs and Symptoms of Compartment Syndrome: no signs of compartment syndrome. Vital Signs: 14:53 BP 172 / 105; Pulse 92; Resp 18 S; Temp 98.4(O); Pulse Ox 99% on R/A; Weight 82.55 kg dd6 (R); Height 5 ft. 7 in. (170.18 cm) (R); 14:53 Body Mass Index 28.50 (82.55 kg, 170.18 cm) dd6 Vitals: 14:53 Log In Time: June 04, 2016 at 14:51. dd6 ED Course: 14:53 Patient visited by Vikash Fermin PCA. dd6 14:53 Yann Olsen DO is Private Physician. dd6 14:53 Patient moved to Waiting dd6 14:54 Patient moved to Pre RCE dd6 15:09 Triage Initiated hs1 15:41 Patient moved to Triage 2 js13 16:15 [facility] Har[facility] cc10 16:15 Osmel Loyd MD is Attending Physician. cc10 16:15 Patient visited by Tawanda Harrington PA-C. cc10 16:15 Patient visited by Tawanda Harrington PA-C. cc10 16:23 [facility] is Referral Physician. cc10 16:25 The patient / caregiver is instructed regarding the plan of care and ED course. ml6 16:25 No IV's were initiated during this patient's visit. No procedures done that require ml6 assistance. 16:34 Patient moved to [place] [id number] Administered Medications: 16:25 Drug: Cyclobenzaprine 10 mg [cyclobenzaprine 10 mg tablet (1 tabs)] Route: PO; ml6 16:25 Drug: Naproxen 500 mg [naproxen 250 mg tablet (2 tabs)] Route: PO; ml6 Order Results: There are currently no results for this order. Outcome: 16:23 Discharge ordered by Provider. cc10 16:25 Discharge Assessment: patient administered narcotics - no. The following High Risk ml6 Discharge criteria are identified: None. Discharged to home ambulatory. Condition: stable. Discharge instructions given to patient, Instructed on discharge instructions, follow up and referral plans. medication usage, Demonstrated understanding of instructions, medications, Pt was receptive of discharge instructions/ teaching. Prescriptions given X 3. No special radiology studies were completed. Property sent home with patient. :Personal belongings accompany Pt. 17:14 Patient left the ED. ml6 Signatures: Vikash Fermin, RETAIL PERSONAL BANKER RETAIL PERSONAL BANKER dd6 Jamey Martinez RN RN ml6 Re Arias RN RN 1 Naomy Rock RN RN js13 Tawanda Harrington PA-C PA-C cc10 MTDD
--- NOTE | 2016-06-06 18:15 | EDDOCDS ---
Physician Documentation [facility] Name: Adriane Contreras Age: 40 yrs Sex: Female : 1975 Arrival Date: 06/04/2016 Time: 14:52 Bed TR8 Private MD: Yann Olsen Disposition: 06/04/16 16:23 Discharged to Home/Self Care. Impression: Low back pain - chronic. - Condition is Stable. - Discharge Instructions: Chronic Back Pain. - Prescriptions for Naprosyn 500 mg Oral Tablet - take 1 tablet by ORAL route 2 times per day take with food; 30 tablet. Prednisone 20 mg Oral Tablet - take 1 tablet by ORAL route once daily for 5 days; 5 tablet. Cyclobenzaprine 10 mg Oral Tablet - take 1 tablet by ORAL route 3 times per day As needed; 15 tablet. - Medication Reconciliation, Local Pharmacy [facility], [facility] Followup form. - Follow up: Emergency Department; When: As needed. Follow up: [facility]; When: Call to arrange an appointment; Reason: Wound/Symptom Recheck, Recheck today's complaints, Worsening of conditions, Continuance of care. - Problem is chronic. - Symptoms are unchanged. Historical: - Allergies: PENICILLINS (Rash); - Home Meds: 1. Effexor XR 450 mg Oral once daily (Last dose: 06/04/2016 10:00) 2. nabumetone 750 mg oral tab 1 tab 2 times per day (Last dose: 06/03/2016 10:00) - PMHx: Chronic Back pain; Depression; - PSHx: back surgery; Lumbar Surgery; - Social history: Smoking status: Patient uses tobacco products, heavy tobacco smoker. No barriers to communication noted, The patient speaks fluent Tam[place], Speaks appropriately for age. - Family history: Not pertinent. - : The pt / caregiver states he / she is not on anticoagulants. Home medication list is obtained from the patient. - Exposure Risk Screening:: None identified. 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 7 in. (170.18 cm) (R); 14:53 Body Mass Index 28.50 (82.55 kg, 170.18 cm) dd6 MDM: 16:22 Cyclobenzaprine 10 mg PO once ordered. cc10 16:22 Naproxen 500 mg PO once; administer with food or milk ordered. cc10 16:56 Financial registration complete. gjb : [facility] Payment Agreement was scanned into [employer] and attached to record. [facility] 06/05 12:49 T-Sheet-- Draft Copy was scanned into [employer] and attached to record. gb Administered Medications: 06/04 16:25 Drug: Cyclobenzaprine 10 mg [cyclobenzaprine 10 mg tablet (1 tabs)] Route: PO; ml6 16:25 Drug: Naproxen 500 mg [naproxen 250 mg tablet (2 tabs)] Route: PO; ml6 Signatures: Jazmin Hudson, Reg Reg gb Jamey Martinez RN RN ml6 Re Arias RN RN hs1 Tawanda Harrington PA-C PA-C cc10 Rubia Tyler [facility] The chart was reviewed and I authenticate all verbal orders and agree with the evaluation and treatment provided.Attachments: : [facility] Payment Agreement [facility] 06/05 12:49 T-Sheet-- Draft Copy gb Chart Complete MTDD
--- NOTE | 2016-06-06 18:15 | EDDOCDS ---
Physician Documentation [facility] Name: Adriane Contreras Age: 40 yrs Sex: Female : 1975 Arrival Date: 06/04/2016 Time: 14:52 Bed TR8 Private MD: Yann Olsen Disposition: 06/04/16 16:23 Discharged to Home/Self Care. Impression: Low back pain - chronic. - Condition is Stable. - Discharge Instructions: Chronic Back Pain. - Prescriptions for Naprosyn 500 mg Oral Tablet - take 1 tablet by ORAL route 2 times per day take with food; 30 tablet. Prednisone 20 mg Oral Tablet - take 1 tablet by ORAL route once daily for 5 days; 5 tablet. Cyclobenzaprine 10 mg Oral Tablet - take 1 tablet by ORAL route 3 times per day As needed; 15 tablet. - Medication Reconciliation, Local Pharmacy [facility], [facility] Followup form. - Follow up: Emergency Department; When: As needed. Follow up: [facility]; When: Call to arrange an appointment; Reason: Wound/Symptom Recheck, Recheck today's complaints, Worsening of conditions, Continuance of care. - Problem is chronic. - Symptoms are unchanged. Historical: - Allergies: PENICILLINS (Rash); - Home Meds: 1. Effexor XR 450 mg Oral once daily (Last dose: 06/04/2016 10:00) 2. nabumetone 750 mg oral tab 1 tab 2 times per day (Last dose: 06/03/2016 10:00) - PMHx: Chronic Back pain; Depression; - PSHx: back surgery; Lumbar Surgery; - Social history: Smoking status: Patient uses tobacco products, heavy tobacco smoker. No barriers to communication noted, The patient speaks fluent Romanian, Speaks appropriately for age. - Family history: Not pertinent. - : The pt / caregiver states he / she is not on anticoagulants. Home medication list is obtained from the patient. - Exposure Risk Screening:: None identified. 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 7 in. (170.18 cm) (R); 14:53 Body Mass Index 28.50 (82.55 kg, 170.18 cm) dd6 MDM: 16:22 Cyclobenzaprine 10 mg PO once ordered. cc10 16:22 Naproxen 500 mg PO once; administer with food or milk ordered. cc10 16:56 Financial registration complete. gjb : [facility] Payment Agreement was scanned into [employer] and attached to record. [facility] 06/05 12:49 T-Sheet-- Draft Copy was scanned into [employer] and attached to record. gb Administered Medications: 06/04 16:25 Drug: Cyclobenzaprine 10 mg [cyclobenzaprine 10 mg tablet (1 tabs)] Route: PO; ml6 16:25 Drug: Naproxen 500 mg [naproxen 250 mg tablet (2 tabs)] Route: PO; ml6 Signatures: Jazmin Hudson, Reg Reg gb Jamey Martinez RN RN ml6 Re Arias RN RN hs1 Tawanda Harrington PA-C PA-C cc10 Rubia Tyler [facility] The chart was reviewed and I authenticate all verbal orders and agree with the evaluation and treatment provided.Attachments: : [facility] Payment Agreement [facility] 06/05 12:49 T-Sheet-- Draft Copy gb Chart Complete MTDD
--- NOTE | 2016-06-06 18:15 | EDDOCDS ---
Nurse's Notes [facility] Name: Adriane Contreras Age: 40 yrs Sex: Female : 1975 Arrival Date: 06/04/2016 Time: 14:52 Bed TR8 Private MD: Yann Olsen Diagnosis: Low back pain-chronic Presentation: 06/04 15:08 Presenting complaint: Patient states: "my back again" patient reports falling at end of hs1 April and was seen here diagnosed with back pain and refer to primary care. Patient states has been following up and nothing is working and the medications she has been on have not been working. Patient at this time answers cell phone and speaks to friend on phone laughing. Acute neurological deficits are not present. Mechanism of Injury: No Mechanism of Injury. Adult Sepsis Screening: The patient does not have new or worsening altered mentation. Patient's respiratory rate is less than 22. Systolic blood pressure is greater than 100. Patient has a qSOFA score of 0- Negative Sepsis Screen. Suicide/Homicide risk assessment- the patient denies having any suicidal and/or homicidal ideations and does not present with any other emotional, behavioral or mental health complaints. 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 Transition of care: patient was not received from another setting of care. 15:08 Acuity: NAV Level 4 hs1 15:08 Method Of Arrival: Walkin/Carried/Asstd hs1 Triage Assessment: 15:11 General: Appears uncomfortable, Behavior is appropriate for age, cooperative. Pain: hs1 Location: back Pain currently is 8 out of 10 on a pain scale. HIV screening NA for this visit Offered previously. Musculoskeletal: No deficits noted. 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 Effexor XR 450 mg Oral once daily (Last dose: 06/04/2016 10:00) 2. nabumetone 750 mg oral tab 1 tab 2 times per day (Last dose: 06/03/2016 10:00) - PMHx: Chronic Back pain; Depression; - PSHx: back surgery; Lumbar Surgery; - Social history: Smoking status: Patient uses tobacco products, heavy tobacco smoker. No barriers to communication noted, The patient speaks fluent Estonian, Speaks appropriately for age. - Family history: Not pertinent. - : The pt / caregiver states he / she is not on anticoagulants. Home medication list is obtained from the patient. - Exposure Risk Screening:: None identified. Screenin:25 Screening information is obtained from the patient. Fall risk: No risks identified. ml6 Assistance ADL's: requires no assistance with activities of daily living. Abuse/DV Screen: The patient / caregiver reports he/she is: not in a situation that causes fear, pain or injury. Nutritional screening: No deficits noted. Advance Directives: Currently, there is no health care proxy. home support is adequate. Assessment: 16:25 General: Appears in no apparent distress, Behavior is appropriate for age, cooperative. ml6 Pain: Location: back Pain currently is 6 out of 10 on a pain scale. Pain does not radiate. Quality of pain is described as aching, Pain began 2-3 days ago Is continuous Alleviated by nothing. Aggravated by increased activity. Cardiovascular: No deficits noted. Capillary refill < 3 seconds is sluggish in bilateral fingers toes Heart tones S1 S2 present Edema is absent. Pulses are all present. Respiratory: No deficits noted. Musculoskeletal: Circulation, motion, and sensation intact Capillary refill < 3 seconds is brisk in bilateral fingers toes Range of motion intact in all extremities. No deformity noted Swelling absent Signs and Symptoms of Compartment Syndrome: no signs of compartment syndrome. Vital Signs: 14:53 BP 172 / 105; Pulse 92; Resp 18 S; Temp 98.4(O); Pulse Ox 99% on R/A; Weight 82.55 kg dd6 (R); Height 5 ft. 7 in. (170.18 cm) (R); 14:53 Body Mass Index 28.50 (82.55 kg, 170.18 cm) dd6 Vitals: 14:53 Log In Time: June 04, 2016 at 14:51. dd6 ED Course: 14:53 Patient visited by Vikash Fermin PCA. dd6 14:53 Yann Olsen DO is Private Physician. dd6 14:53 Patient moved to Waiting dd6 14:54 Patient moved to Pre RCE dd6 15:09 Triage Initiated hs1 15:41 Patient moved to Triage 2 js13 16:15 Tawanda Harrington PA-C is PSYCHIATRICP. cc10 16:15 Osmel Loyd MD is Attending Physician. cc10 16:15 Patient visited by Tawanda Harrington PA-C. cc10 16:15 Patient visited by Tawanda Harrington PA-C. cc10 16:23 [facility] is Referral Physician. cc10 16:25 The patient / caregiver is instructed regarding the plan of care and ED course. ml6 16:25 No IV's were initiated during this patient's visit. No procedures done that require ml6 assistance. 16:34 Patient moved to [place] [address] 18:21 [facility] Payment Agreement was scanned into [employer] and attached to record. gjb 06/05 12:49 T-Sheet-- Draft Copy was scanned into [employer] and attached to record. gb Administered Medications: 06/04 16:25 Drug: Cyclobenzaprine 10 mg [cyclobenzaprine 10 mg tablet (1 tabs)] Route: PO; ml6 16:25 Drug: Naproxen 500 mg [naproxen 250 mg tablet (2 tabs)] Route: PO; ml6 Order Results: There are currently no results for this order. Outcome: 16:23 Discharge ordered by Provider. cc10 16:25 Discharge Assessment: patient administered narcotics - no. The following High Risk ml6 Discharge criteria are identified: None. Discharged to home ambulatory. Condition: stable. Discharge instructions given to patient, Instructed on discharge instructions, follow up and referral plans. medication usage, Demonstrated understanding of instructions, medications, Pt was receptive of discharge instructions/ teaching. Prescriptions given X 3. No special radiology studies were completed. Property sent home with patient. :Personal belongings accompany Pt. 17:14 Patient left the ED. ml6 Signatures: Jazmin Hudson, Reg Reg gb Vikash Fermin, PATIENT SERVICE SPECIALIST PATIENT SERVICE SPECIALIST dd6 Jamey Martinez, CHRISTOPHER RN ml6 Re Arias RN RN 1 Naomy Rock RN RN js13 Tawanda Harrington PA-C PA-C cc10 Rubia Tyler [facility] Chart Complete MTDD
== END 2016-06-04 17:14 | disposition home or self-care (01) ==
LOC: M ED 14:52
DX: M54.17 Radiculopathy, lumbosacral region (principal); G89.29 Other chronic pain; F32.9 Major depressive disorder, single episode, unspecified; Z87.39 Personal history of other diseases of the musculoskeletal system and connective tissue; F17.200 Nicotine dependence, unspecified, uncomplicated; Z79.899 Other long term (current) drug therapy; Z88.0 Allergy status to penicillin

== ENCOUNTER 2021-02-23 10:44 | Observation (INO) | payer OTHER ==
[~2021-02-23] VITALS: Ht 172.7 cm; Wt 101.0 kg
[~2021-02-23 10:44] MED LIST changes: -ABIL1TAB7 PO; +ABIL20TA5 PO; -COLA100C PO; +COLA100C5 PO; -EFFE150C PO; +EFFE150C2 PO; +OXYC-141 PO; -OXYC-299 PO
[2021-02-23] MEDS ORDERED: LABETALOL 100MG/20ML VIAL IV STA ×2 (12:50→14:00)
[2021-02-23 13:36] LABS: BASO % 0.3 % (0.0-1.0); HEMATOCRIT 38.8 % (36.0-47.0); HEMOGLOBIN 12.8 g/dl (12.0-15.5); LYMPH # 1.7 10^3/uL (1.5-5.0); LYMPH % 25.5 % (24.0-44.0); MEAN CORPUSCULAR HEMOGLOBIN 32.6 pg (27.0-33.0); MEAN CORPUSCULAR VOLUME 98.7 fl (80.0-96.0); MONO # 0.6 10^3/uL (0.0-0.8); MONO % 9.5 % (2.0-8.0); NEUTROPHILS # 4.2 10^3/uL (1.5-8.5); NEUTROPHILS % 64.4 % (36.0-66.0); PLATELET COUNT, AUTOMATED 223 10^3/uL (150-450); RED BLOOD COUNT 3.93 10^6/uL (4.00-5.40); WHITE BLOOD COUNT 6.5 10^3/uL (4.0-10.0)
--- NOTE | 2021-02-23 13:36 | REP ---
INDICATION: cough COMPARISON: None. TECHNIQUE: Portable AP view of the chest FINDINGS: The mediastinum and cardiac silhouette are within normal limits for portable technique. The lung chavez are clear without acute consolidation, effusion, or pneumothorax. Skeletal structures are intact. IMPRESSION: No acute cardiopulmonary process appreciated. <Electronically signed by Dillon Francis > 02/23/21 [id number]
[2021-02-23 14:02] LABS: ALBUMIN 3.6 GM/DL (3.2-5.2); ALT/SGPT 23 U/L (12-78); BILIRUBIN,DIRECT 0.1 MG/DL (0.0-0.2); BILIRUBIN,TOTAL 0.4 MG/DL (0.2-1.0); BLOOD UREA NITROGEN 10 MG/DL (7-18); CALCIUM LEVEL 8.9 MG/DL (8.5-10.1); CARBON DIOXIDE LEVEL 25 MEQ/L (21-32); CHLORIDE LEVEL 103 MEQ/L (98-107); CK-MB VALUE MASS < 1.0 NG/ML (<3.6); CPK CREATINE PHOSPHOKINASE 89 U/L (26-192); CREATININE FOR GFR 1.09 MG/DL (0.55-1.30); FREE T4 0.78 NG/DL (0.76-1.46); GLOMERULAR FILTRATION RATE > 60.0 (>58); GLUCOSE, FASTING 101 MG/DL (70-100); MB/CK RELATIVE INDEX 1.12 (< OR =4); POTASSIUM SERUM 3.9 MEQ/L (3.5-5.1); SODIUM LEVEL 136 MEQ/L (136-145); THYROID STIMULATING HORMONE 0.627 uIU/ML (0.358-3.740); TOTAL PROTEIN 7.6 GM/DL (6.4-8.2); TROPONIN I < 0.02 NG/ML (< 0.10)
--- NOTE | 2021-02-23 14:22 | REP ---
INDICATION: headache htn COMPARISON: None. TECHNIQUE: Axial noncontrast images from the skull base to the vertex with coronal reformations. This CT examination was performed using the following dose reduction techniques: Automated exposure control, adjustment of mA and/or kv according to the patient's size, and use of iterative reconstruction technique. FINDINGS: The ventricles, sulci, and cisterns are normal in position and appearance. Clayton-white differentiation is maintained. No acute intracranial hemorrhage, mass/mass effect, pathology or trauma/injury. No evidence for acute infarction. No extra-axial fluid collection. Incidental small lacune noted in the medial right temporal lobe. Calvarium is intact. Paranasal sinuses and mastoid air cells are clear. IMPRESSION: Normal noncontrast head CT. No evidence for acute intracranial pathology or trauma/injury. <Electronically signed by Dillon Francis > 02/23/21 [id number]
[2021-02-23] MEDS ORDERED: HOME MED LIST COMPLETE! XX SCH (15:15)
--- OUTSIDE RECORDS SUMMARY | 2021-02-23 16:43 | CCD ---
Author Author [facility] Organization [facility] Address Unknown Phone Unavailable Care Team Providers Care Continuous Absorption Process Operator Name Role Phone Magno LAMA. NEON SIGN SERVICER DAVONTE Unavailable [phone] KELBY, Magno. NEON SIGN SERVICER DAVONTE Unavailable [phone] KELBY, A. NEON SIGN SERVICER DAVONTE Unavailable [phone] KELBY, Magno. NEON SIGN SERVICER DAVONTE Unavailable [phone] KELBY, Magno. NEON SIGN SERVICER DAVONTE Unavailable [phone] KELBY, Magno. NEON SIGN SERVICER DAVONTE Unavailable [phone] KELBY, Magno. NEON SIGN SERVICER DAVONTE Unavailable [phone] KELBY, Magno. NEON SIGN SERVICER DAVONTE Unavailable [phone] KELBY, A. NEON SIGN SERVICER DAVONTE Unavailable [phone] KELBY, Magno. NEON SIGN SERVICER DAVONTE Unavailable [phone] KELBY, A. NEON SIGN SERVICER DAVONTE Unavailable [phone] KELBY, A. NEON SIGN SERVICER DAVONTE Unavailable [phone] KELBY, Magno. NEON SIGN SERVICER DAVONTE Unavailable [phone] Anshul LAMA Unavailable [phone] Anshul LAMA Unavailable [phone] Re-disclosure Warning The records that you are about to access may contain information from federally-assisted alcohol or drug abuse programs. If such information is present, then the following federally mandated warning applies: This information has been disclosed to you from records protected by federal confidentiality rules (42 CFR part 2). The federal rules prohibit you from making any further disclosure of this information unless further disclosure is expressly permitted by the written consent of the person to whom it pertains or as otherwise permitted by 42 CFR part 2. A general authorization for the release of medical or other information is NOT sufficient for this purpose. The Federal rules restrict any use of the information to criminally investigate or prosecute any alcohol or drug abuse patient.The records that you are about to access may contain highly sensitive health information, the redisclosure of which is protected by Article 27-F of the [facility] Public Health law. If you continue you may have access to information: Regarding HIV / AIDS; Provided by facilities licensed or operated by the [facility] Office of Mental Health; or Provided by the [facility] Office for People With Developmental Disabilities. If such information is present, then the following [facility] mandated warning applies: This information has been disclosed to you from confidential records which are protected by state law. State law prohibits you from making any further disclosure of this information without the specific written consent of the person to whom it pertains, or as otherwise permitted by law. Any unauthorized further disclosure in violation of state law may result in a fine or prison sentence or both. A general authorization for the release of medical or other information is NOT sufficient authorization for further disc losure. Encounters Encounter Providers Location Date Indications Data Source(s ) Outpatient Attender: DAVONTE LAMA 02/10 08:13:37 AM EDT - 02/23/2021 10:10:15 AM EDT [facility] ([facility] ) Medications No Information Insurance Providers Payer name Policy type / Coverage type Policy ID Covered republican ID Covered republican's relationship to vizcarra Policy [employer] Plan Information [place] [id number] Self [id number] [facility] [employer]. [id number] Self [id number] [facility] O [id number] S [id number] [facility] [id number] SP [id number] MEDICAID [id number] SP [id number] HMO BLUE [id number] SP [id number] [employer] [id number] SELF [id number] [facility] P UNAVAILABLE [id number] C UNAVAILABLE MEDICAID P [id number] S [id number] SELF PAY UNAVAILABLE SP UNAVAILA BLE [employer] [facility] [id number] SP [id number] MEDICAID [id number] SP [id number] [facility] COMM[facility] [id number] SP [id number] Problems, Conditions, and Diagnoses No Information Surgeries/Procedures No Information Results No Information Social History No Information
[2021-02-23] MEDS: **hydrALAZINE HCL** 25 MG TAB PO PRN (17:05)
[2021-02-23] MEDS: amLODIPine 5 MG TAB PO SCH (17:05)
[2021-02-23] MEDS ORDERED: hydrALAZINE 20MG/ML 1ML VIAL (J0360 PER 20MG) IV ONE (18:00)
[2021-02-23 18:05] LABS: C REACTIVE PROTEIN QUANTITATIV 0.92 MG/DL (0.00-0.30); FERRITIN 140 NG/ML (8-252); LDH LACTATE DEHYDROGENASE 190 U/L (84-246); MAGNESIUM LEVEL 1.9 MG/DL (1.8-2.4); NT-PRO BNP 160 PG/ML (<125)
[2021-02-23 18:58] LABS: PROTHROMBIN TIME 13.6 SECONDS (12.7-14.5)
[2021-02-23 18:59] LABS: PARTIAL THROMBOPLASTIN TIME 27.4 SECONDS (25.9-37.0)
[2021-02-23 19:01] LABS: D-DIMER QUANT 362.45 ng/ml (<500)
--- NOTE | 2021-02-23 23:31 | HPEPDOC ---
General Date of Admission Feb 23, 2021 at 10:45 Date of Service: Feb 23, 2021 Chief Complaint The patient is a 45-year-old female admitted with a reason for visit of Covid- 19, Hypertensive Urgency. Source: Patient History of Present Illness Mrs. Contreras is a 45 year old female who is here for sore through and cough and found to have hypertensive urgency and COVID positive status. For the past 4 days, she has fever, cough, and sore throat. Patient went to the urgent care for evaluation and found to have hypertensive urgency. She was sent to the ER. While here, her blood pressure peaked at 210/130. She was given two rounds of labetalol to control her blood pressure. Patient's rapid strep was negative but COVID was positive. Patient is not hypoxic and CXR is clear. Leukocytes are not elevated. When I saw patient, she told me she is still smoking, and declined nicotine patient. Patient will be placed in observation for hypertensive urgency. Home Medications No Active Prescriptions or Reported Meds Allergies Coded Allergies: Penicillins (Verified Allergy, Unknown, RASH, VOMITING, 02/23/21) Past Medical History Medical History 1. Herniated disk in lumbar 2. Depression/anxiety 3. PTSD 4. OCD Surgical History 1. Spine surgery in 06/19/12 2. Laminectomy in 09/24/13 Family History Father: On dialysis Mother: History of colon CA Social History * Smoker: current smoker Alcohol: Denies Drugs: denies A-FIB/CHADSVASC A-FIB History Current/History of A-Fib/PAF?: No Review of Systems Constitutional: Reports: Chills; Denies: Fever Eyes: Denies: Vision change ENT: Reports: Sore Throat Skin: Denies: Rash Pulmonary: Reports: Cough; Denies: Dyspnea Cardiovascular: Denies: Chest Pain Gastrointestinal: Denies: Nausea, Abdominal Pain, Diarrhea Genitourinary: Denies: Dysuria Hematologic: Denies: Bruising Neurological: Denies: Numbness Psych: Denies: Anxiety, Depression Physical Examination General Exam: Positive: Alert, Cooperative Eye Exam: Positive: EOMI; Negative: Sclera icteric ENT Exam: Positive: Atraumatic Neck Exam: Positive: Supple Chest Exam: Positive: Clear to auscultation Heart Exam: Positive: Tachycardic, Regular Rhythm Abdomen Exam: Positive: Normal bowel sounds, Soft; Negative: Tenderness Extremity Exam: Negative: Edema Neuro Exam: Positive: Normal Speech Psych Exam: Positive: Mental status NL, Mood NL Vital Signs Vital Signs Date Time Temp Pulse Resp B/P (MAP) Pulse Ox O2 Delivery O2 Flow Rate FiO2 02/23/21 21:45 108 18 135/77 (96) 98 Room Air 02/23/21 10:45 97.9 Laboratory Data Labs 24H Laboratory Tests 2 02/23/21 12:56: Immature Granulocyte % (Auto) 0.3, Neutrophils (%) (Auto) 64.4, Lymphocytes (%) (Auto) 25.5, Monocytes (%) (Auto) 9.5H, Eosinophils (%) (Auto) 0.0, Basophils (%) (Auto) 0.3, Neutrophils # (Auto) 4.2, Lymphocytes # (Auto) 1.7, Monocytes # (Auto) 0.6, Eosinophils # (Auto) 0.0, Basophils # (Auto) 0.0, Nucleated Red Blood Cells % (auto) 0.0, Anion Gap 8, Glomerular Filtration Rate > 60.0, Calcium Level 8.9, Magnesium Level 1.9, Ferritin 140, Total Bilirubin 0.4, Direct Bilirubin 0.1, Aspartate Amino Transf (AST/SGOT) 18, Alanine Aminotran sferase (ALT/SGPT) 23, Alkaline Phosphatase 76, Lactate Dehydrogenase 190, Total Creatine Kinase 89, Creatine Kinase MB < 1.0, Creatine Kinase MB Relative Index 1.12, Troponin I < 0.02, C-Reactive Protein, Quantitative 0.92H, GW-Bhu-Q-Type Natriuretic Peptide 160H, Total Protein 7.6, Albumin 3.6, Albumin/Globulin Ratio 0.9L, Thyroid Stimulating Hormone (TSH) 0.627, Free Thyroxine 0.78 02/23/21 18:28: Prothrombin Time 13.6, Prothromb Time International Ratio 1.00, Activated Partial Thromboplast Time 27.4, Fibrinogen 444, D-Dimer, Quantitative 362.45, Procalcitonin <0.05 CBC/BMP Laboratory Tests 02/23/21 12:56 Microbiology Microbiology 02/23/21 Group A Streptococcus Screen (JONATHON) - Final, Resulted 02/23/21 Group A Streptococcus Screen (JONATHON), Resulted Pending 02/23/21 Respiratory Virus Panel (PCR) (JONATHON) - Final, Complete SARS-CoV-2 (COVID 19) Assessment/Plan Mrs. Contreras is a 45 year old female who is here for sore through and cough and found to have hypertensive urgency and COVID positive status. Patient is unsure how she caught COVID, but she is not hypoxic. Her coughing may have contributed to her hypertensive urgency. Patient will be given amlodipine and put on PRN hydralazine. Plan / VTE VTE Prophylaxis Ordered?: Yes Plan Plan 1. Hypertensive urgency -May have been made worse with coughing -Started amlodipine -PRN PO hydralazine 2. COVID 19 infection -Patient is not hypoxic -CXR clear -Supportive care 3. Obesity -BMI 33.9 -Complicates care 4. DVT ppx -Lovenox and aspirin Disposition: Pending control of blood pressure. COTY FINCH DO Feb 23, 2021 23:31
[2021-02-24] MEDS ORDERED: ENALAPRILAT INJ 2.5MG/2ML VIAL IV ONE (01:15)
[2021-02-24] MEDS: **hydrALAZINE HCL** 25 MG TAB PO PRN (02:38)
[2021-02-24 04:20] VITALS: BP 138/75
[2021-02-24 06:21] LABS: BASO % 0.4 % (0.0-1.0); HEMATOCRIT 35.9 % (36.0-47.0); HEMOGLOBIN 11.8 g/dl (12.0-15.5); LYMPH # 1.6 10^3/uL (1.5-5.0); LYMPH % 31.3 % (24.0-44.0); MEAN CORPUSCULAR HEMOGLOBIN 32.6 pg (27.0-33.0); MEAN CORPUSCULAR HGB CONC 32.9 g/dl (32.0-36.5); MEAN CORPUSCULAR VOLUME 99.2 fl (80.0-96.0); MONO # 0.5 10^3/uL (0.0-0.8); MONO % 10.2 % (2.0-8.0); NEUTROPHILS % 57.9 % (36.0-66.0); PLATELET COUNT, AUTOMATED 201 10^3/uL (150-450); RED BLOOD COUNT 3.62 10^6/uL (4.00-5.40); WHITE BLOOD COUNT 5.2 10^3/uL (4.0-10.0)
[2021-02-24 06:40] LABS: BLOOD UREA NITROGEN 11 MG/DL (7-18); CALCIUM LEVEL 8.3 MG/DL (8.5-10.1); CARBON DIOXIDE LEVEL 27 MEQ/L (21-32); CHLORIDE LEVEL 102 MEQ/L (98-107); CREATININE FOR GFR 1.08 MG/DL (0.55-1.30); GLOMERULAR FILTRATION RATE > 60.0 (>58); GLUCOSE, FASTING 98 MG/DL (70-100); MAGNESIUM LEVEL 1.9 MG/DL (1.8-2.4); POTASSIUM SERUM 3.3 MEQ/L (3.5-5.1); SODIUM LEVEL 136 MEQ/L (136-145)
[2021-02-24] MEDS ORDERED: CEPACOL LOZENGE PO PRN (06:55)
[2021-02-24 08:00] VITALS: O2SAT 99
--- NOTE | 2021-02-24 08:14 | ECGEPIP ---
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
[2021-02-24] MEDS: amLODIPine 5 MG TAB PO SCH (08:40)
[2021-02-24] MEDS ORDERED: ASPIRIN 81MG ENTERIC TABLET PO SCH (09:00)
[2021-02-24] MEDS ORDERED: ENOXAPARIN 40MG/0.4ML SYRINGE (J1650 PER 10MG) SC SCH (09:00)
[2021-02-24] MEDS ORDERED: AMLO1TAB24 PO (10:55)
[2021-02-24] MEDS ORDERED: ASPI-551 PO (10:55)
[2021-02-24] MEDS ORDERED: SORE15LO PO (10:55)
[2021-02-24] MEDS ORDERED: amLODIPine 5 MG TAB PO ONE (11:00)
--- NOTE | 2021-02-24 11:03 | DS.PDOC ---
Discharge Summary General Date of Admission Feb 23, 2021 at 10:45 Date of Discharge 02/24/2021 Attending Physician: ABDELRAHMAN REZA MD Discharge Summary PROCEDURES PERFORMED DURING STAY: None ADMITTING DIAGNOSES: Hypertensive urgency Covid-19 infection DISCHARGE DIAGNOSES: Hypertensive urgency covid-19 infection Obesity COMPLICATIONS/CHIEF COMPLAINT: Covid-19, Hypertensive Urgency. HISTORY OF PRESENT ILLNESS: 45 year old W who presented with sore throat and cough and found to have hypertensive urgency and COVID-19 infection. She reported a 4 day history fever, cough, and sore throat. Patient went to the urgent care for evaluation and was found to have hypertensive urgency. She was sent to the ER. HOSPITAL COURSE: While here, her blood pressure peaked at 210/130. She was given two rounds of labetalol to control her blood pressure. Patient's rapid strep was negative but COVID was positive. Patient was not hypoxic and CXR was clear. Leukocytes were not elevated.She is an active smoker and declined a nicotine patch. She was otherwise admitted for hypertensive urgency and is now much better improved on amlodipine 10mg daily. I am now discharging her home to closely follow up with her PCP in case she needs a second agent, as for now she has responded well to amlodipine and is within target. In addition, I am also discharging her with goal to re-admit for outpatient MABs for her covid-19 infection given her high risk for severe disease given obesity, hypertension and smoker. DISCHARGE MEDICATIONS: Please see below. ALLERGIES: Please see below. PHYSICAL EXAMINATION ON DISCHARGE: VITAL SIGNS: Please see below. General: Alert, Cooperative Eyes: EOMI;, anicteric ENT: Atraumatic Neck: Supple Chest: Clear to auscultation Heart: RRR, no m/r/g Abdomen: Normal bowel sounds, soft, NTND Extremities: WWP, no edema Neuro: Normal Speech, nonfocal examination Psych: Mental status NL, AOx3 LABORATORY DATA: Please see below. IMAGING: CXR: no acute cardiopulmonary abnormalities PROGNOSIS: Good ACTIVITY: As tolerated DIET: 2g sodium DISCHARGE PLAN: home after outpatient MABs DISPOSITION: Home DISCHARGE INSTRUCTIONS: home after outpatient MABs. To take amlodipine 10mg daily and close follow up with PCP within 7d ITEMS TO FOLLOWUP ON ON OUTPATIENT: HTN covid-19 infection DISCHARGE CONDITION: Stable TIME SPENT ON DISCHARGE: 34 minutes. Vital Signs/I&Os Vital Signs Date Time Temp Pulse Resp B/P (MAP) Pulse Ox O2 Delivery O2 Flow Rate FiO2 02/24/21 08:40 101 138/75 02/24/21 08:00 99 Room Air 02/24/21 04:20 98.5 18 Laboratory Data Labs 24H Laboratory Tests 2 02/23/21 12:56: Immature Granulocyte % (Auto) 0.3, Neutrophils (%) (Auto) 64.4, Lymphocytes (%) (Auto) 25.5, Monocytes (%) (Auto) 9.5H, Eosinophils (%) (Auto) 0.0, Basophils (%) (Auto) 0.3, Neutrophils # (Auto) 4.2, Lymphocytes # (Auto) 1.7, Monocytes # (Auto) 0.6, Eosinophils # (Auto) 0.0, Basophils # (Auto) 0.0, Nucleated Red Blood Cells % (auto) 0.0, Anion Gap 8, Glomerular Filtration Rate > 60.0, Calcium Level 8.9, Magnesium Level 1.9, Ferritin 140, Total Bilirubin 0.4, Direct Bilirubin 0.1, Aspartate Amino Transf (AST/SGOT) 18, Alanine Aminotransferase (ALT/SGPT) 23, Alkaline Phosphatase 76, Lactate Dehydrogenase 190, Total Creatine Kinase 89, Creatine Kinase MB < 1.0, Creatine Kinase MB Relative Index 1.12, Troponin I < 0.02, C-Reactive Protein, Quantitative 0.92H, [id number]-[id number]-Type Natriuretic Peptide 160H, Total Protein 7.6, Albumin 3.6, Albumin/Globulin Ratio 0.9L, Thyroid Stimulating Hormone (TSH) 0.627, Free Thyroxine 0.78 02/23/21 18:28: Prothrombin Time 13.6, Prothromb Time International Ratio 1.00, Activated Partial Thromboplast Time 27.4, Fibrinogen 444, D-Dimer, Quantitative 362.45, Procalcitonin <0.05 02/24/21 06:07: Immature Granulocyte % (Auto) 0.2, Neutrophils (%) (Auto) 57.9, Lymphocytes (%) (Auto) 31.3, Monocytes (%) (Auto) 10.2H, Eosinophils (%) (Auto) 0.0, Basophils (%) (Auto) 0.4, Neutrophils # (Auto) 3.0, Lymphocytes # (Auto) 1.6, Monocytes # (Auto) 0.5, Eosinophils # (Auto) 0.0, Basophils # (Auto) 0.0, Nucleated Red Blood Cells % (auto) 0.0, Anion Gap 7L, Glomerular Filtration Rate > 60.0, Calcium Level 8.3L, Magnesium Level 1.9 CBC/BMP Laboratory Tests 02/23/21 12:56 02/24/21 06:07 Microbiology Microbiology 02/23/21 Group A Streptococcus Screen (JONATHON) - Final, Complete 02/23/21 Group A Streptococcus Screen (JONATHON) - Final, Complete 02/23/21 Respiratory Virus Panel (PCR) (JONATHON) - Final, Complete SARS-CoV-2 (COVID 19) Discharge Medications No Active Prescriptions or Reported Meds Allergies Coded Allergies: Penicillins (Verified Allergy, Unknown, RASH, VOMITING, 02/23/21) ABDELRAHMAN REZA MD Feb 24, 2021 11:03
[2021-02-24 11:39] VITALS: BP 145/88
[2021-02-24 12:00] VITALS: O2SAT 99
[2021-02-24] MEDS ORDERED: ACETAMINOPHEN TAB 650MG DOSE (2X325MG) PO PRN (12:15)
[2021-02-24 14:29] VITALS: BP 143/82
[2021-02-24 16:00] VITALS: O2SAT 97
[2021-02-25] MEDS ORDERED: amLODIPine 5 MG TAB PO SCH (09:00)
== END 2021-02-24 18:00 | disposition home or self-care (01) ==
LOC: M ED 10:44 → M ED INP 10:45 → ENRESERV 02-24 00:51 → M 4MAIN 02-24 04:20
PROVIDERS: ADMIT Internal Medicine; ATTEND Internal Medicine
DX: I16.0 Hypertensive urgency (principal); U07.1 COVID-19; F17.218 Nicotine dependence, cigarettes, with other nicotine-induced disorders; F32.9 Major depressive disorder, single episode, unspecified; F41.9 Anxiety disorder, unspecified; F43.10 Post-traumatic stress disorder, unspecified; F42.9 Obsessive-compulsive disorder, unspecified; E66.9 Obesity, unspecified; Z88.0 Allergy status to penicillin
CPT/HCPCS: 36415; 70450; 71045; 80048; 80076; 82550; 82553; 82728; 83615; 83735; 83880; 84145; 84439; 84443; 85025; 85379; 85384; 85610; 85730; 86140; 87430; 87798; 93005; 93041; 94760; 96374; 96375; 96376; 99285; J0360